=== PATIENT | female | born 1980 | race Caucasian/White ===

== ENCOUNTER → 2023-09-14 | Outpatient (CLI) | payer BC ==
[2023-09-14 11:20] LABS: Basophils # (A) 0.05 X 10*3/uL (0.00-0.10); Basophils % (A) 0.6 %; Eosinophils # (A) 0.06 X 10*3/uL (0.04-0.35); Eosinophils % (A) 0.7 %; HCT 43.7 % (37.2-46.3); HGB 14.5 g/dL (12.0-15.0); Lymphocytes # (A) 1.89 X 10*3/uL (0.90-5.00); MCH 30.1 pg (27.0-32.0); MCHC 33.2 g/dL (32.0-37.0); MCV 90.9 FL (80.0-97.0); Mean Platelet Volume 9.6 FL (9.5-12.2); Monocytes # (A) 0.64 X 10*3/uL (0.20-1.00); Monocytes % (A) 7.5 %; NRBC Per 100 WBC 0 X 10*3/uL (0.00-0.01); Neutrophils # (A) 5.92 X 10*3/uL (1.80-7.70); Platelet Count 276 X 10*3/uL (140-440); RBC 4.81 X 10*6/uL (4.10-5.20); RDW 11.9 % (11.5-14.5); WBC 8.58 X 10*3/uL (4.50-10.00)
== END | disposition home or self-care (01) ==
LOC: LABWHC1 07:13
PROVIDERS: ATTEND Obstetrics & Gynecology Obstetrics
DX: Z01.812 Encounter for preprocedural laboratory examination (principal); N92.0 Excessive and frequent menstruation with regular cycle
CPT/HCPCS: 36415; 85025

== ENCOUNTER 2023-09-22 06:55 | Day surgery (SDC) | payer BC ==
[~2023-09-22 06:55] MED LIST: Pre Op ABX Message 1 EACH MISC MISCELLANE ONE
[2023-09-22] MEDS ORDERED: HYDROmorphone 0.5 MG/0.5 ML SYRINGE IVP PRN (07:18)
[2023-09-22] MEDS: SCOPOLAMINE 1 MG/72 HR PATCH TRANSDERM ONE (07:43)
[2023-09-22] MEDS: DEXAMETHASONE SOD PHOSPHATE 4 MG/ML 1 ML VIAL IV ONE (07:43)
[2023-09-22] MEDS: ONDANSETRON 4 MG/2 ML VIAL IVP ONE (07:43)
[2023-09-22 07:44] VITALS: RESP 16
[2023-09-22] MEDS: LACTATED RINGERS 1,000 ML IV SCH (07:44)
--- NOTE | 2023-09-22 08:30 | P.HPOB ---
History of Present Illness H&P Date: 09/22/23 Chief Complaint: Heavy menstrual bleeding, family-planning This is a 42-year-old 1 para 1 that presents for scheduled hysteroscopy, dilation curettage with endometrial ablation, patient is requesting permanent sterilization secondary to ablation. She is done with childbearing. Patient states her menstrual cycles are regular approximately every 30 days her flow is very heavy with clots. She does note midcycle spotting. She denies dysmenorrhea with her periods. Patient has a prior history of a section, patient states she has done with childbearing. Review of Systems Constitutional: Denies chills, Denies fatigue, Denies fever Ears, nose, mouth and throat: Denies headache Cardiovascular: Denies leg edema Respiratory: Denies dyspnea Gastrointestinal: Denies nausea, Denies vomiting Genitourinary: Reports menorrhagia, Denies dysmenorrhea, Denies Menstruation: Reports period heavy Past Medical History History of Any Multi-Drug Resistant Organisms: None Reported Past Surgical History: Section Past Anesthesia/Blood Transfusion Reactions: No Reported Reaction Smoking Status: Never smoker - Past Family History Father Family Medical History: No Reported History Mother History Unknown: Yes Medications and Allergies Home Medications Medication Instructions Recorded Confirmed Type Cholecalciferol [Vitamin D3 (25 25 mcg PO QAM 09/19/23 09/22/23 History Mcg = 1000 Iu)] Isibloom 1 tab PO HS 09/19/23 09/22/23 History Magnesium Citrate and Oxide 250 mg PO QAM 09/19/23 09/22/23 History [Magnesium] Zzzquil 1 cap PO HS 09/19/23 09/22/23 History Allergies Allergy/AdvReac Type Severity Reaction Status Date / Time No Known Allergies Allergy Verified 09/22/23 07:18 Exam Osteopathic Statement: *. No significant issues noted on an osteopathic structural exam other than those noted in the History and Physical/Consult. Vital Signs Temp Pulse Resp BP Pulse Ox 09/22/23 07:24 98.1 F 66 16 105/57 97 Intake and Output 09/21/23 09/22/23 09/22/23 22:59 06:59 14:59 Other: Weight 63 kg Targeted physical exam is performed in the state General is well-nourished well- developed non female in no acute distress, breathing is nonlabored, heart has a regular rate and rhythm, abdomen is soft and nontender, on ge nitourinary exam external genitalia is noted to be normal for age, vaginal mucosa is known to be pink and well-rugated, cervix is noted to be without lesion, the uterus is mobile with no adnexal masses appreciated. Assessment and Plan (1) Menorrhagia Current Visit: Yes Status: Acute Code(s): N92.0 - EXCESSIVE AND FREQUENT MENSTRUATION WITH REGULAR CYCLE SNOMED Code(s): 034451002 (2) Family planning Current Visit: Yes Status: Acute Code(s): Z30.09 - ENCOUNTER FOR OT GENERAL CNSL AND ADVICE ON CONTRACEPTION SNOMED Code(s): 898106061 Plan: 42-year-old 1 para 1 with known heavy menstrual cycles requesting endometrial ablation. Patient is counseled on need for tubal ligation secondary to contraindications of after ablation. Patient is requesting salpingectomy. Patient is scheduled for operative laparoscopy, bilateral salpingectomy if unable to do salpingectomy plan Filshie clip tubal occlusion, hysteroscopy, dilation curettage with endometrial ablation, NovaSure. Risks of procedure reviewed with patient in detail including but not limited to infection, bleeding, damage to bladder, bowel, uterine perforation or inability to do the ablation. Patient states understanding and wishes to proceed to the operating suite.
[2023-09-22] MEDS ORDERED: NEOSTIGMINE 1 MG/ML 10 ML VIAL ONE (08:34)
[2023-09-22] MEDS ORDERED: GLYCOPYRROLATE 0.2 MG/ML 2 ML VIAL ONE (08:34)
[2023-09-22] MEDS ORDERED: LIDOCAINE 1% INJ 10MG/ML (20 ML MDV) ONE (08:34)
[2023-09-22] MEDS ORDERED: HYDROmorphone (PF) 1 MG/ML ONE (08:34)
[2023-09-22] MEDS ORDERED: fentaNYL (PF) 50 MCG/ML 2 ML AMP ONE (08:34)
[2023-09-22] MEDS ORDERED: SUCCINYLCHOLINE CHLORIDE 200 MG/10 ML VIAL IV ONE (08:34)
[2023-09-22] MEDS ORDERED: MIDAZOLAM 2 MG/2 ML VIAL ONE (08:34)
[2023-09-22] MEDS ORDERED: KETOROLAC 15 MG/ML 1 ML VIAL ONE (08:34)
[2023-09-22] MEDS ORDERED: PROPOFOL 10 MG/ML 20 ML VIAL IV ONE (08:34)
[2023-09-22] MEDS ORDERED: ROCURONIUM 10 MG/ML (5 ML VIAL) IV ONE (08:34)
[2023-09-22] MEDS: LACTATED RINGERS 1,000 ML IV ONE (09:49)
[2023-09-22 09:58] VITALS: TEMP 97
--- NOTE | 2023-09-22 10:01 | P.OP ---
Date of Procedure: 09/22/23 Preoperative Diagnosis: Heavy menstrual bleeding, family-planning Postoperative Diagnosis: Same Procedure(s) Performed: Operative laparoscopy, salpingectomy, hysteroscopy, dilation curettage, endometrial ablation, NovaSure Anesthesia: LOUA Surgeon: Niurka Trinidad Estimated Blood Loss (ml): 5 IV fluids (ml): 700 Urine output (ml): 50 Pathology: other (Bilateral fallopian tubes, endometrial curettings) Condition: stable Disposition: PACU Indications for Procedure: Heavy menstrual bleeding, family status complete desires permanent sterilization Operative Findings: Normal ovaries bilaterally. Fallopian tubes are removed without difficulty, proliferative appearing endometrial cavity Description of Procedure: Patient was taken back to the operating suite where general anesthesia was obtained without difficulty by the anesthesia department. Patient was then prepped and draped in the normal sterile fashion in the dorsolithotomy position. A red rubber catheter was used to drain the bladder of clear yellow urine. A weighted speculum placed the posterior vaginal vault the antilipid the cervix is visualized and grasped with a single-tooth tenaculum. The endocervical canal was serially dilated and a coronary manipulator was advanced into the cervix as a means to manipulate the uterus through the procedure. Attention then turned to the patient's abdomen where in the umbilical fold a small skin incision is made. Through this incision the Veress needle was placed. Once the Veress needle was deemed to be in the appropriate position with a drop of CO2 pressure with the insufflation of CO2 gas CO2 insufflation was allowed to occur. At this time a 5 mm trocar and sleeve with the laparoscope in place was placed through the skin incision and toward the pneumop eritoneum. At this time the above-noted findings were visualized. An additional port site is placed approximately 10 cm lateral and 3 cm inferior to the midline port this is a 5 Parr port placed under direct visualization. A blunt probe was then used to elevate the bilateral fallopian tubes ovaries were appreciated to be normal and the fallopian tubes were free from adhesions. An additional port site is placed in the left mid quadrant under direct visualization. The a grasper was used to elevate the left fallopian tube that LigaSure was then used to cauterize and transect the mesosalpinx of the left fallopian tube to the cornual region. The fallopian tube was then removed from the abdomen. This was then repeated in the opposite side. On inspection hemostasis was appreciated. At this time all instruments removed from the patient's abdomen. The skin incisions were closed with 4-0 Vicryl in a subcuticular fashion. Steri-Strips and sterile dressings were applied. Attention then turned to the patient's vaginal vault where the acorn uterine manipulator was removed without difficulty. The endocervical canal was then dilated further and hysteroscope was placed through the cervix and toward the endometrial cavity. Proliferative endometrium was appreciated. Sharp curettage was performed and the specimen was sent to pathology for analysis. The NovaSure was then opened and set to the appropriate measurements for this patient's cavity. A length of 4, width of 2.6. After the cavity assessment was completed the NovaSure device was allowed to complete its cycle with a power of 57 for a total of 88 seconds. After the cycle was completed the device was removed without difficulty. The single-tooth tenaculum was taken off of the anterior lip of the cervix and hemostasis was appreciated. All counts were noted be correct x 2 at the end of the procedure. Patient did tolerate procedure well and was taken to the recovery room awake in stable condition.
[2023-09-22 11:25] VITALS: BP 122/81; PULSE 76
== END 2023-09-22 11:09 | disposition home or self-care (01) ==
LOC: OR 06:55
PROVIDERS: ATTEND Obstetrics & Gynecology Obstetrics
DX: N85.00 Endometrial hyperplasia, unspecified (principal); Z30.2 Encounter for sterilization
CPT/HCPCS: 81025; 58563; 58661; J2250; J0330; J1100; J2710; J2405; J2001; J3010; J1170; J1885; J2704; 88302; 88305